=== PATIENT | male | born 1970 | race Caucasian/White ===

== ENCOUNTER 2017-12-24 14:10 | Emergency (ER) | payer OTHER ==
--- NOTE | 2017-12-24 15:28 | C.PDOC ---
History Of Present Illness 47 year old male with a past medical history of hypertension, asthma, obesity, and sleep apnea, presents to the emergency department requesting detox from alcohol. Last drink was last night. Patient also complains of shortness of breath, mostly with exertion, which has been ongoing since last year but worsened recently. He reports having to stop every 5-6 steps because he feels so short of breath. Patient initially went to [facility] for detox this morning , but was referred to come here instead as they felt they could not manage his other medical conditions. States he sometimes gets the shakes in the morning from withdrawal, but today he feels fine. PMD: [place] Time Seen by Provider: 12/24/17 14:56 Chief Complaint (Nursing): Shortness Of Breath History Per: Patient History/Exam Limitations: no limitations Onset/Duration Of Symptoms: Days (x 1 year) Current Symptoms Are (Timing): Better Exacerbating Factor(s): Exertion Past Medical History Reviewed: Historical Data, Nursing Documentation, Vital Signs Vital Signs: Last Vital Signs Temp 98.8 F 12/24/17 14:18 Pulse 97 H 12/24/17 14:18 Resp 22 12/24/17 15:41 BP 152/92 H 12/24/17 14:18 Pulse Ox 92 L 12/24/17 15:42 - Medical History PMH: Asthma, COPD, HTN, Peripheral Edema, Sleep Apnea Family History: States: No Known Family Hx - Social History Hx Tobacco Use: Yes (< pack per day) Hx Alcohol Use: Yes (daily) Hx Substance Use: No - Immunization History Hx Tetanus Toxoid Vaccination: No Hx Influenza Vaccination: No Hx Pneumococcal Vaccination: No Review Of Systems Except As Marked, All Systems Reviewed And Found Negative. Constitutional: Negative for: Fever Cardiovascular: Negative for: Chest Pain Respiratory: Positive for: SOB with Excertion (ongoing for 1 year). Negative for: Cough Musculoskeletal: Positive for: Other (lower extremity edema, chronic per patient ) Psych: Positive for: Other (alcohol abuse). Negative for: Withdrawal Physical Exam - Physical Exam Appears: No Acute Distress, Other (Morbidly obese) Skin: Normal Color, Warm, Dry Head: Atraumatic, Normacephalic Eye(s): bilateral: Normal Inspection, PERRL, EOMI Nose: Normal Oral Mucosa: Moist Neck: Normal ROM, Supple Chest: Symmetrical Cardiovascular: Rhythm Regular, No Murmur Respiratory: No Rales, No Rhonchi, No Wheezing, Other (Lungs clear to auscultation) Gastrointestinal/Abdominal: Soft, No Tenderness, Other (obese abdomen) Extremity: Normal ROM, Swelling (extreme lower extremity edema) Neurological/Psych: Oriented x3, Normal Speech Gait: Steady ED Course And Treatment - Laboratory Results Result Diagrams: 12/24/17 16:17 12/24/17 15:41 O2 Sat by Pulse Oximetry: 92 (RA) Pulse Ox Interpretation: Abnormal Medical Decision Making Medical Decision Making: On evaluation, O2 sat is 96 on room air. Patient denies feeling short of breath at rest. Initial Impression: 47 y/o requesting detox Time: 15:17 Initial Plan: * EKG * Alcohol serum * Urine drug screen * BMP * Chest x-ray * Urinalysis * Crisis will evaluate patient Disposition - Disposition Disposition: HOME/ ROUTINE Disposition Time: 18:22 Condition: STABLE Additional Instructions: Please follow up with the crisis center as indicated. Instructions: Alcohol Abuse and Alcoholism (DC) Forms: [facility] (M[place]ese), General Discharge Instructions - Clinical Impression Clinical Impression: Dyspnea, Alcohol abuse - Scribe Statement The provider has reviewed the documentation as recorded by the Scribe (Ara Emerson) Provider Attestation: All medical record entries made by the Scribe were at my direction and personally dictated by me. I have reviewed the chart and agree that the record accurately reflects my personal performance of the history, physical exam, medical decision making, and the department course for this patient. I have also personally directed, reviewed, and agree with the discharge instructions and disposition.
[2017-12-24 16:00] LABS: CALCIUM 8.1 mg/dl (8.6-10.4); GFR AFRICAN-AMERICAN > 60; GFR NON-AFRICAN AMERICAN > 60
[2017-12-24 16:07] LABS: BLOOD UREA NITROGEN 9 mg/dL (9-20)
[2017-12-24 16:20] LABS: HEMOGLOBIN 11.3 g/dL (12.0-18.0); MEAN CELL VOLUME 79.3 fL (80.0-94.0); MEAN CORPUSCULAR HEMOGLOBIN 24.8 pg (27.0-31.0); MEAN CORPUSCULAR HGB CONC 31.3 g/dL (33.0-37.0); MEAN PLATELET VOLUME 6.8 fL (7.2-11.7); RBC 4.57 Mil/uL (4.40-5.90); RED CELL DISTRIBUTION WIDTH 22.8 % (11.5-14.5); WHITE BLOOD COUNT 10.3 K/uL (4.8-10.8)
[2017-12-24 16:54] LABS: B-TYPE NATRIURETIC PEPTIDE 96.4 pg/mL (0-450)
[2017-12-24 17:50] LABS: URINE BILIRUBIN NEGATIVE (NEGATIVE); URINE BLOOD NEGATIVE (NEGATIVE); URINE CLARITY Clear (Clear); URINE COLOR Yellow (YELLOW); URINE GLUCOSE (UA) NORMAL (Normal); URINE LEUKOCYTE ESTERASE NEG Leu/uL (Negative); URINE NITRATE NEGATIVE (NEGATIVE); URINE PROTEIN NEGATIVE (NEGATIVE)
--- NOTE | 2017-12-24 17:58 | RAD ---
HISTORY: SOB COMPARISON: None available. TECHNIQUE: Chest PA and lateral FINDINGS: Examination limited by habitus LUNGS: No focal consolidation. Please note that chest x-ray has limited sensitivity for the detection of pulmonary masses. PLEURA: No significant pleural effusion identified. No definite pneumothorax . CARDIOVASCULAR: Heart size appears within normal limits. OSSEOUS STRUCTURES: No acute osseous abnormality identified. VISUALIZED UPPER ABDOMEN: Unremarkable. OTHER FINDINGS: None. IMPRESSION: No focal consolidation identified.
[2017-12-24 18:11] LABS: BARBITURATES, UR NEGATIVE (NEGATIVE); BENZODIAZEPINES, UR NEGATIVE (NEGATIVE); OPIATES, UR NEGATIVE (NEGATIVE); PHENCYCLIDINE, UR NEGATIVE (NEGATIVE)
[2017-12-24 18:26] VITALS: BP 130/84; PULSE 76; RESP 18; TEMP 97.8; O2SAT 97
--- NOTE | 2017-12-26 15:59 | CARD ---
APPROVED REPORT EKG Measurement Heart [id number] <Conclusion> Sinus tachycardia Otherwise normal ECG
== END 2017-12-24 18:34 | disposition home or self-care (01) ==
LOC: C.ER 14:10
DX: F10.10 Alcohol abuse, uncomplicated (principal); Y90.9 Presence of alcohol in blood, level not specified; R06.00 Dyspnea, unspecified